=== PATIENT | female | born 1985 | race Caucasian/White ===

== ENCOUNTER 2023-12-05 10:17 | Emergency (ER) | payer OTHER ==
[~2023-12-05] VITALS: Ht 152.4 cm; Wt 77.1 kg
[2023-12-05] MEDS ORDERED: DiphenhydrAMINE HCl 50 MG Cap PO ONE (10:50)
[2023-12-05] MEDS ORDERED: Levothyroxine Sodium 0.112 MG Tab PO ONE (10:50)
[2023-12-05] MEDS ORDERED: ALPRAZolam 0.5 MG Tab PO ONE (11:40)
[2023-12-05] MEDS ORDERED: ALPR.5 PO (12:08)
== END 2023-12-05 12:24 | disposition home or self-care (01) ==
LOC: ER 10:17
DX: G25.71 Drug induced akathisia (principal); E03.9 Hypothyroidism, unspecified; F17.290 Nicotine dependence, other tobacco product, uncomplicated
CPT/HCPCS: A9270

== ENCOUNTER 2024-07-23 07:48 | Emergency (ER) | payer OTHER ==
[~2024-07-23] VITALS: Ht 154.9 cm; Wt 77.1 kg
[~2024-07-23 07:48] MED LIST: ALPR.5 PO
[2024-07-23] MEDS ORDERED: TRAM50 PO (08:24)
== END 2024-07-23 08:28 | disposition home or self-care (01) ==
LOC: ER 07:48
DX: Z76.0 Encounter for issue of repeat prescription (principal); E03.9 Hypothyroidism, unspecified; F17.290 Nicotine dependence, other tobacco product, uncomplicated; Z79.899 Other long term (current) drug therapy
CPT/HCPCS: 99281

== ENCOUNTER 2025-01-28 13:50 | Emergency (ER) | payer OTHER ==
[~2025-01-28] VITALS: Ht 154.9 cm; Wt 80.7 kg
[~2025-01-28 13:50] MED LIST changes: +TRAM50 PO
[2025-01-28] MEDS ORDERED: TRAM50 PO (14:59)
[2025-01-28] MEDS ORDERED: Ketorolac Tromethamine 30mg Vial IM ONE (15:00)
== END 2025-01-28 15:19 | disposition home or self-care (01) ==
LOC: ER 13:50
DX: M54.42 Lumbago with sciatica, left side (principal); G89.29 Other chronic pain; F32.A Depression, unspecified
CPT/HCPCS: 96372; 99283-25; J1885

== ENCOUNTER 2025-01-29 07:59 | Emergency (ER) | payer OTHER ==
[~2025-01-29] VITALS: Ht 162.6 cm; Wt 76.2 kg
[2025-01-29] MEDS ORDERED: Ketorolac Tromethamine 30mg Vial IM ONE (08:20)
== END 2025-01-29 08:30 | disposition home or self-care (01) ==
LOC: ER 07:59
DX: M54.50 Low back pain, unspecified (principal); G89.29 Other chronic pain
CPT/HCPCS: 96372; 99281-25; J1885